=== PATIENT | female | born 1980 | race African-American/Black ===

== ENCOUNTER 2016-11-05 02:56 | Emergency (ER) | payer SELFPAY ==
[~2016-11-05] VITALS: Ht 160 cm; Wt 60.0 kg
[~2016-11-05 02:56] MED LIST: Z.0.NO CURRENT MEDS
[2016-11-05 03:01] VITALS: BP 136/88; PULSE 68; RESP 18; TEMP 98.1; O2SAT 100
[2016-11-05 03:14] VITALS: RESP 16
[2016-11-05] MEDS ORDERED: SODIUM CHLORIDE 0.9% FLUSH 10 ML FLUSH IVF PRN (03:15)
[2016-11-05 03:23] LABS: AUTOMATED NEUTROPHIL # 4.3 TH/MM3 (1.8-7.7); BASOPHIL # 0.1 TH/MM3 (0-0.2); BASOPHIL % 0.8 % (0.0-2.0); EOSINOPHIL # 0.1 TH/MM3 (0-0.4); EOSINOPHIL % 1.1 % (0.0-4.0); HEMATOCRIT 36.4 % (35.0-46.0); HEMO FLAGS DIFF FINAL; LYMPH % 21.6 % (9.0-44.0); LYMPHOCYTE # 1.4 TH/MM3 (1.0-4.8); MEAN CELL VOLUME 94.3 FL (80.0-100.0); MEAN CORPUSCULAR HEMOGLOBIN 31.7 PG (27.0-34.0); MEAN CORPUSCULAR HGB CONC 33.7 % (32.0-36.0); MONO % 11.1 % (0.0-8.0); NEUT % 65.4 % (16.0-70.0); PLATELET COUNT 276 TH/MM3 (150-450); RED BLOOD COUNT 3.86 MIL/MM3 (4.00-5.30); RED CELL DISTRIBUTION WIDTH 13.4 % (11.6-17.2); WHITE BLOOD COUNT 6.5 TH/MM3 (4.0-11.0)
[2016-11-05 03:30] LABS: AMPHETAMINE, URINE NEG (NEG); BARBITURATES, URINE NEG (NEG); COCAINE, URINE NEG (NEG)
[2016-11-05 03:40] LABS: ACETAMINOPHEN LESS THAN 2.0 MCG/ML (10.0-30.0); ALKALINE PHOSPHATASE 45 U/L (45-117); ALT (GPT) 24 U/L (10-53); ANION GAP 9 MEQ/L (5-15); AST (GOT) 24 U/L (15-37); BICARBONATE 24.6 MEQ/L (21.0-32.0); BLOOD UREA NITROGEN 11 MG/DL (7-18); CHLORIDE 109 MEQ/L (98-107); GLOMERULAR FILTRATION RATE 117 ML/MIN (>89); POTASSIUM 3.3 MEQ/L (3.5-5.1); SODIUM (NA) 143 MEQ/L (136-145); TOTAL BILIRUBIN ADULT 0.2 MG/DL (0.2-1.0)
--- NOTE | 2016-11-05 05:09 | PD ---
HPI Chief Complaint: Psychiatric Symptoms Time Seen by Provider: 03:05 Travel History International Travel<30 days: No Contact w/Intl Traveler<30days: No Traveled to known affect area: No History of Present Illness HPI This is a 36-year-old female who presents the emergency department having reportedly overdosed on sleeping medication just because she wanted to sleep. Her friends called 911 and she was put under a Nixon act. Patient doesn't provide much history PFSH Past Medical History Cardiovascular Problems: Yes ("had a murmur and a hole in my heart that closed up") Tetanus Vaccination: Unknown Influenza Vaccination: No ?: Not LMP: october 24 : 0 Past Surgical History Surgical History: No Previous Surgery Cardiac Surgery: Yes (SURGERY FOR HEART MURMUR INFANT) Family History Family Hypercholesterolemia: Yes Social History Alcohol Use: No Tobacco Use: Yes (ABOUT 3 CIGARETTES / WK) Substance Use: No Allergies-Medications (Allergen,Severity, Reaction): Coded Allergies: Penicillin (Verified Allergy, Severe, UNKNOWN, 10/08/09) Reported Meds & Prescriptions Reported Meds & Active Scripts Active Reported No Current Meds (Miscellaneous Medication) Misc Review of Systems ROS Limitations: Poor Historian Physical Exam Narrative GENERAL:Well appearing, no acute distress SKIN: Focused skin assessment warm and dry. HEAD: Atraumatic. Normocephalic. EYES: Pupils equal and round. No injection or drainage. ENT: Moist mucous membranes NECK: Trachea midline. CARDIOVASCULAR: Regular rate and rhythm. No murmur appreciated. RESPIRATORY: Clear to auscultation. Breath sounds equal bilaterally. GASTROINTESTINAL: Abdomen soft, non-tender, nondistended. MUSCULOSKELETAL: No obvious deformities. NEUROLOGICAL: Awake and alert. No obvious cranial nerve deficits. Moving all extremities. PSYCHIATRIC: Depressed mood. Poor eye contact. Data Data Last Documented VS Vital Signs Date Time Temp Pulse Resp B/P Pulse Ox O2 Delivery O2 Flow Rate FiO2 11/05/16 06:41 63 18 120/82 99 Room Air 11/05/16 03:01 98.1 Orders Electrocardiogram (11/05/16 03:06) Complete Blood Count With Diff (11/05/16 03:06) Comprehensive Metabolic Panel (11/05/16 03:06) Iv Access Insert/Monitor (11/05/16 03:06) Ecg Monitoring (11/05/16 03:06) Oximetry (11/05/16 03:06) Sodium Chloride 0.9% Flush (Ns Flush) (11/05/16 03:15) Drug Screen, Random Urine (11/05/16 03:06) Alcohol (Ethanol) (11/05/16 03:06) Salicylates (Aspirin) (11/05/16 03:06) Tylenol (Acetaminophen) (11/05/16 03:06) Ed Urine Pregnancytest Poc (11/05/16 03:06) Psych Screen (11/05/16 05:57) Labs Laboratory Tests Test 11/05/16 03:00 White Blood Count 6.5 TH/MM3 Red Blood Count 3.86 MIL/MM3 Hemoglobin 12.2 GM/DL Hematocrit 36.4 % Mean Corpuscular Volume 94.3 FL Mean Corpuscular Hemoglobin 31.7 PG Mean Corpuscular Hemoglobin 33.7 % Concent Red Cell Distribution Width 13.4 % Platelet Count 276 TH/MM3 Mean Platelet Volume 9.2 FL Neutrophils (%) (Auto) 65.4 % Lymphocytes (%) (Auto) 21.6 % Monocytes (%) (Auto) 11.1 % Eosinophils (%) (Auto) 1.1 % Basophils (%) (Auto) 0.8 % Neutrophils # (Auto) 4.3 TH/MM3 Lymphocytes # (Auto) 1.4 TH/MM3 Monocytes # (Auto) 0.7 TH/MM3 Eosinophils # (Auto) 0.1 TH/MM3 Basophils # (Auto) 0.1 TH/MM3 CBC Comment DIFF FINAL Differential Comment Sodium Level 143 MEQ/L Potassium Level 3.3 MEQ/L Chloride Level 109 MEQ/L Carbon Dioxide Level 24.6 MEQ/L Anion Gap 9 MEQ/L Blood Urea Nitrogen 11 MG/DL Creatinine 0.69 MG/DL Estimat Glomerular Filtration 117 ML/MIN Rate Random Glucose 84 MG/DL Calcium Level 8.7 MG/DL Total Bilirubin 0.2 MG/DL Aspartate Amino Transf 24 U/L (AST/SGOT) Alanine Aminotransferase 24 U/L (ALT/SGPT) Alkaline Phosphatase 45 U/L Total Protein 7.1 GM/DL Albumin 3.5 GM/DL Salicylates Level 7.4 MG/DL Urine Opiates Screen NEG Acetaminophen Level LESS THAN 2.0 MCG/ML Urine Barbiturates Screen NEG Urine Amphetamines Screen NEG Urine Benzodiazepines Screen NEG Urine Cocaine Screen NEG Urine Cannabinoids Screen POS Ethyl Alcohol Level LESS THAN 3 MG/DL MDM Medical Decision Making Medical Screen Exam Complete: Yes Emergency Medical Condition: Yes Interpretation(s) Afebrile, no tachycardia, normal EKG: Normal sinus rhythm with no ST changes No leukocytosis Mild hypokalemia Urine drug screen is positive for cannabinoid's Acetaminophen is 2 Salicylates is 7.4 Alcohol is 3 Differential Diagnosis Acetaminophen overdose, salicylate overdose, alcohol intoxication, drug intoxication, depression, bipolar disorder Narrative Course This is a 36-year-old female who presents to the emergency Department having overdosed on sleeping medication. Labs were obtained which were all reassuring. Patient is medically clear for psychiatric evaluation. India Harden MD Nov 05, 2016 05:09
[2016-11-05 05:37] VITALS: BP 108/66; PULSE 63; RESP 16; O2SAT 98
[2016-11-05 06:41] VITALS: BP 120/82; PULSE 63; RESP 18; O2SAT 99
--- NOTE | 2016-11-05 08:31 | EKG ---
Date Performed: 11/05/2016 Time Performed: 03:04:32 PTAGE: 36 years EKG: Sinus rhythm SEPTAL [place], AGE UNDETERMINED PREVIOUS TRACING : 10/08/2009 17.49 No significant change from previous tracing noted. DOCTOR: Obed Norwood Interpretating Date/Time 11/05/2016 08:29:38
[2016-11-05 12:41] VITALS: BP 138/72; PULSE 76; RESP 20
[2016-11-05 22:13] VITALS: BP 113/61; PULSE 79; RESP 17; O2SAT 98
[2016-11-06 02:23] VITALS: BP 108/64; PULSE 75; RESP 18; O2SAT 99
[2016-11-06 05:54] VITALS: BP 121/73; PULSE 73; RESP 16; O2SAT 98
--- NOTE | 2016-11-06 09:01 | PD ---
History of Present Illness Chief Complaint: Psychiatric Symptoms Time Seen by Provider: 08:55 Travel History International Travel<30 Days: No Contact w/Intl Traveler<30days: No Known affected area: No Legal Status Legal Status: Nixon Act Nixon Act Signed By: Juan Ramon Vang History of Present Illness: History of Present Illness HPI This is a 36-year-old female who presents to the emergency department under a BA initiated by KEY. The BA alleges that " she took a bunch of pills so she could see her mother and sister". Her friends called 911 after she took the pills. She was medically cleared and then was monitored in [facility]. She presented no behavioral concerns and no suicidality. Record is reviewed. No previous contact with [facility] psychiatry. Patient is alert, oriented, calm, engaging and cooperative. Affect is tearful at times. Her speech is clear and logical. There is no psychosis and no brandan. She admits to feeling sad but she is not significantly depressed. This is the the month in which both her mother and her sister . Her mother when she was 9 years old and her sister when she was 22 years old. She acknowledges that she failed to use her support system and admits that this was an impulsive act. She is remorseful of her actions because she feels that she let her friends and her fiancee down. At this time she denies any suicidal or homicidal ideation, intent or plan. PFSH Past Medical History Cardiovascular Problems: Yes ("had a murmur and a hole in my heart that closed up") Tetanus Vaccination: Unknown Influenza Vaccination: No ?: Not LMP: october 24 : 0 Past Surgical History Surgical History: No Previous Surgery Cardiac Surgery: Yes (SURGERY FOR HEART MURMUR INFANT) Psychiatric History Psychiatric History Hx Psychiatric Treatment: None History of Inpatient Treatment: No Guns or firearms in home: No Social History Single female. Lives with friends. Works at [employer]. Hx Alcohol Use: No Hx Tobacco Use: Yes (ABOUT 3 CIGARETTES / WK) Hx Substance Use: Yes Substance Use Type: Alcohol (social drinker), Marijuana Hx of Substance Use Treatment: No Family Psychiatric History Negative Allergies-Medications (Allergen,Severity, Reaction): Coded Allergies: Penicillin (Verified Allergy, Severe, UNKNOWN, 10/08/09) Reported Meds & Prescriptions Reported Meds & Active Scripts Active No Active Prescriptions or Reported Medications Review of Systems Except as stated in HPI: all other systems reviewed are Neg Exam Alert: Yes [employer]: Person (ox4) Mood: Calm, Other (sad) Affect: Tearful Speech: Clear, Logical Eye Contact: Normal Memory Intact: Comment (No gross abnormality) Hallucinations: Other (neagtive) Delusions: No Suicidal: Ideation (deneis any) Homicidal: Ideation (denies any) Insight/Judgement Fair. Not impaired. MDM Medical Decision Making Medical Record Reviewed: Yes Assessment/Plan 36 year old female with no previous psychiatric history and no previous history of suicide attempt who impulsively took some pills and went to sleep. She reports s she was feeling sad over the anniversary month of the of her mother and her sister. She denies any depression, denies any suicidal or homicidal ideation. Adequate protective factors are in place. She is able to contract for safety and has a safety plan in place including talking to her friends and family and returning to [facility]. She is also considering counseling services. At this time she does not present imminent risk to self. Psychoeducation is provided. Will lift BA. Orders Diet Regular Basic (11/05/16 Dinner) Diet Regular Basic (11/06/16 Breakfast) Results Vital Signs Date Time Temp Pulse Resp B/P Pulse Ox O2 Delivery O2 Flow Rate FiO2 11/06/16 05:54 73 16 121/73 98 Room Air 11/06/16 02:23 75 18 108/64 99 Room Air 11/05/16 22:13 79 17 113/61 98 Room Air 11/05/16 12:41 76 20 138/72 Diagnosis Primary Impression: Adjustment disorder Psychiatrically Cleared: Yes Med/ Other Pt Specific Info: No Meds Exist/No RX given Prescriptions No Active Prescriptions or Reported Meds Disposition: 01 DISCHARGE HOME Condition: Stable Problem Qualifiers Primary Impression: Adjustment disorder Qualified Code: F43.21 - Adjustment disorder with depressed mood Love Angel Nov 06, 2016 09:01
== END 2016-11-06 09:27 | disposition home or self-care (01) ==
LOC: NEPE 02:56 → NEPJ 11-06 09:27
DX: F43.21 Adjustment disorder with depressed mood (principal); T45.0X2A Poisoning by antiallergic and antiemetic drugs, intentional self-harm, initial encounter; E87.6 Hypokalemia; F17.210 Nicotine dependence, cigarettes, uncomplicated; Z88.0 Allergy status to penicillin
CPT/HCPCS: 80053; 80307; 84703; 85025; 93005